=== PATIENT | female | born 1985 | race Caucasian/White ===

== ENCOUNTER 2017-08-03 09:04 | Outpatient (CLI) | payer OTHER ==
[~2017-08-03] VITALS: Ht 162.6 cm; Wt 82.7 kg
[2017-08-03] MEDS ORDERED: AMPICILLIN 2 GM in SODIUM CHLORIDE 0.9% 100 ML IVPB ONE (09:30)
[2017-08-03] MEDS: LACTATED RINGERS 1,000 ML IV SCH ×2 (09:30→11:50)
[2017-08-03] MEDS ORDERED: NEWBORN KIT ONE (09:43)
[2017-08-03 10:22] VITALS: BP 119/78
[2017-08-03 10:29] LABS: BASOPHILS # (AUTO) 0.02 x10^3/uL (0-0.1); BASOPHILS % (AUTO) 0 % (0-1); EOSINOPHILS # (AUTO) 0.03 x10^3/uL (0-0.4); EOSINOPHILS % (AUTO) 0 % (1-7); LYMPHOCYTES # (AUTO) 1.58 x10^3/uL (1-3.4); LYMPHOCYTES % (AUTO) 17 % (22-44); MD NO; MEAN CORPUSCULAR HEMOGLOBIN 28.6 pg (27.0-34.8); MEAN CORPUSCULAR HGB CONC 33.6 g/dL (32.4-35.8); MEAN CORPUSCULAR VOLUME 85.2 fL (80-100); MEAN PLATELET VOLUME 8.4 fL (7.4-10.4); MONOCYTES # (AUTO) 0.57 x10^3/uL (0.2-0.8); MONOCYTES % (AUTO) 6 % (2-9); NEUTROPHILS # (AUTO) 7.17 x10^3/uL (1.8-6.8); NEUTROPHILS % (AUTO) 77 % (42-75); PLATELET COUNT 209 x10^3/uL (130-400); RED BLOOD COUNT 3.89 x10^6/uL (3.82-5.3); RED CELL DISTRIBUTION WIDTH 13.2 % (9.6-15.2)
[2017-08-03] MEDS ORDERED: OXYTOCIN 30U/ 0.9% NaCL 500ML 500 ML IV PRN (11:33)
== END 2017-08-03 13:42 | disposition home or self-care (01) ==
LOC: LDOP 09:04
PROVIDERS: ATTEND Obstetrics & Gynecology
DX: O42.913 Preterm premature rupture of membranes, unspecified as to length of time between rupture and onset of labor, third trimester (principal); Z3A.37 37 weeks gestation of pregnancy
CPT/HCPCS: 36415; 59020; 59025; 76815; 85025; 86850; 86900; 96360; 96366; J0290; J2590; J7120; 99211; G0463

== ENCOUNTER 2017-08-15 23:05 | Inpatient (IN) | payer OTHER ==
[~2017-08-15] VITALS: Ht 162.6 cm; Wt 84.5 kg
[2017-08-15 23:10] VITALS: BP 133/82
[2017-08-15] MEDS ORDERED: NEWBORN KIT ONE (23:40)
[2017-08-15] MEDS: D5%-LACTATED RINGERS 1,000 ML IV SCH (23:40)
[2017-08-15] MEDS ORDERED: OXYTOCIN 30U/ 0.9% NaCL 500ML 500 ML ONE (23:40)
[2017-08-15] MEDS ORDERED: OXYTOCIN 30U/ 0.9% NaCL 500ML 500 ML IV ONE (23:40)
[2017-08-16] MEDS ORDERED: SODIUM CITRATE/CITRIC ACID 30 ML UDC PO PRN
[2017-08-16] MEDS ORDERED: METOCLOPRAMIDE 5 MG/ML, 2ML IVPush PRN
[2017-08-16] MEDS ORDERED: CALCIUM CARBONATE 500 MG TAB.CHEW PO PRN
[2017-08-16] MEDS ORDERED: FENTANYL PF 100 MCG/2ML IVPush PRN
[2017-08-16] MEDS ORDERED: PENICILLIN GK 5,000,000 UNITS in DEXTROSE 5% 100 ML IVPB ONE
[2017-08-16] MEDS ORDERED: TERBUTALINE 1 MG/ML, 1ML IVPush PRN
[2017-08-16] MEDS ORDERED: FENTANYL PF 100 MCG/2ML IV PRN
[2017-08-16] MEDS: LACTATED RINGERS 1,000 ML IV SCH ×4 (00:05→21:29)
[2017-08-16 00:10] LABS: BASOPHILS # (AUTO) 0.02 x10^3/uL (0-0.1); BASOPHILS % (AUTO) 0 % (0-1); EOSINOPHILS # (AUTO) 0.07 x10^3/uL (0-0.4); EOSINOPHILS % (AUTO) 1 % (1-7); LYMPHOCYTES # (AUTO) 2.46 x10^3/uL (1-3.4); LYMPHOCYTES % (AUTO) 21 % (22-44); MD NO; MEAN CORPUSCULAR HGB CONC 33.2 g/dL (32.4-35.8); MEAN CORPUSCULAR VOLUME 84.3 fL (80-100); MEAN PLATELET VOLUME 8.6 fL (7.4-10.4); MONOCYTES # (AUTO) 0.78 x10^3/uL (0.2-0.8); MONOCYTES % (AUTO) 7 % (2-9); NEUTROPHILS # (AUTO) 8.52 x10^3/uL (1.8-6.8); NEUTROPHILS % (AUTO) 72 % (42-75); PLATELET COUNT 274 x10^3/uL (130-400); RED BLOOD COUNT 4.16 x10^6/uL (3.82-5.3); RED CELL DISTRIBUTION WIDTH 13.7 % (9.6-15.2)
[2017-08-16] MEDS: PENICILLIN GK 2,500,000 UNITS in DEXTROSE 5% 100 ML IV SCH ×5 (04:33→22:49)
[2017-08-16 07:30] VITALS: BP 118/73
[2017-08-16] MEDS: D5%-LACTATED RINGERS 1,000 ML IV SCH ×2 (07:38→15:40)
[2017-08-16] MEDS ORDERED: BUPIVACAINE 0.25% ONE (14:42)
[2017-08-16] MEDS ORDERED: FENTANYL PF 100 MCG/2ML ONE (14:42)
[2017-08-16] MEDS ORDERED: FENTANYL/BUPIV./NS/PF 250 ML EPIDCONT ONE (14:43)
[2017-08-16] MEDS ORDERED: LIDOCAINE/PF 1.5%-EPI 1:200K, 30ML ONE (14:45)
[2017-08-16] MEDS ORDERED: FENTANYL/BUPIV./NS/PF 250 ML EPIDCONT SCH (19:33)
[2017-08-16] MEDS ORDERED: LACTATED RINGERS 1,000 ML IV SCH (19:33)
[2017-08-16] MEDS ORDERED: EPHEDRINE 50 MG/ML, 1ML IVPush PRN (20:00)
[2017-08-16] MEDS ORDERED: LACTATED RINGERS 1,000 ML IVBOLUS PRN (20:00)
[2017-08-16] MEDS ORDERED: ONDANSETRON 2MG/ML, 2ML IVPush PRN ×2 (20:00)
[2017-08-16] MEDS ORDERED: ACETAMINOPHEN 325 MG TABLET ONE (21:41)
[2017-08-16] MEDS ORDERED: MISOPROSTOL 200 MCG TABLET ONE (21:42)
[2017-08-16] MEDS ORDERED: LIDOCAINE 1%, 20ML ONE (21:42)
[2017-08-16] MEDS ORDERED: ACETAMINOPHEN 500 MG TABLET PO ONE (22:00)
[2017-08-17] MEDS: OXYTOCIN 30U/ 0.9% NaCL 500ML 500 ML IV SCH ×4 (01:13→11:13)
[2017-08-17] MEDS ORDERED: IBUPROFEN 600 MG TABLET ONE (01:14)
[2017-08-17] MEDS ORDERED: OXYTOCIN 30U/ 0.9% NaCL 500ML 500 ML ONE (01:14)
[2017-08-17] MEDS: IBUPROFEN 600 MG TABLET PO PRN ×4 (01:20→21:12)
[2017-08-17] MEDS: LACTATED RINGERS 1,000 ML IV SCH ×2 (03:33→05:15)
[2017-08-17 04:05] VITALS: BP 103/41
[2017-08-17 05:42] VITALS: BP 113/74
[2017-08-17 08:02] VITALS: BP 115/78
[2017-08-17] MEDS: PRENATAL VIT/IRON/FA 1 EACH TABLET PO SCH (08:50)
[2017-08-17] MEDS ORDERED: PRENATAL VIT/IRON/FA 1 EACH TABLET PO SCH (09:00)
[2017-08-17 09:42] LABS: BASOPHILS # (AUTO) 0.02 x10^3/uL (0-0.1); BASOPHILS % (AUTO) 0 % (0-1); EOSINOPHILS # (AUTO) 0.02 x10^3/uL (0-0.4); EOSINOPHILS % (AUTO) 0 % (1-7); LYMPHOCYTES # (AUTO) 1.26 x10^3/uL (1-3.4); LYMPHOCYTES % (AUTO) 9 % (22-44); MD NO; MEAN CORPUSCULAR HEMOGLOBIN 28.4 pg (27.0-34.8); MEAN CORPUSCULAR HGB CONC 33.7 g/dL (32.4-35.8); MEAN CORPUSCULAR VOLUME 84.4 fL (80-100); MEAN PLATELET VOLUME 8.8 fL (7.4-10.4); MONOCYTES # (AUTO) 0.83 x10^3/uL (0.2-0.8); MONOCYTES % (AUTO) 6 % (2-9); NEUTROPHILS # (AUTO) 12.32 x10^3/uL (1.8-6.8); NEUTROPHILS % (AUTO) 85 % (42-75); PLATELET COUNT 196 x10^3/uL (130-400); RED BLOOD COUNT 2.89 x10^6/uL (3.82-5.3)
[2017-08-17 12:30] VITALS: BP 125/87
[2017-08-17] MEDS ORDERED: MEASLES,MUMPS&RUBELLA VACC/PF 0.5 ML SQ-VACC ONE (19:30)
[2017-08-17] MEDS ORDERED: DIPH,PERTUSS(ACELL),TET VAC/PF NC IM-VACC ONE (19:30)
[2017-08-17 19:35] VITALS: BP 120/77
[2017-08-17 23:57] VITALS: BP 102/65
[2017-08-18] MEDS: IBUPROFEN 600 MG TABLET PO PRN ×3 (02:56→17:04)
[2017-08-18] MEDS ORDERED: MEASLES,MUMPS&RUBELLA VACC/PF 0.5 ML SQ-VACC ONE (07:00)
[2017-08-18 09:15] VITALS: BP 103/67
[2017-08-18] MEDS: FERROUS SULFATE 325 MG TABLET PO SCH ×2 (09:15→17:04)
[2017-08-18] MEDS: PRENATAL VIT/IRON/FA 1 EACH TABLET PO SCH (09:15)
[2017-08-18 20:20] VITALS: BP 105/56
[2017-08-19] MEDS: IBUPROFEN 600 MG TABLET PO PRN ×2 (01:27→09:16)
[2017-08-19] MEDS ORDERED: IBUP-1222 PO (05:56)
[2017-08-19] MEDS ORDERED: FERR325T5 PO (05:59)
[2017-08-19] MEDS ORDERED: DOCUSATE 100 MG CAPSULE PO PRN (06:30)
[2017-08-19] MEDS: FERROUS SULFATE 325 MG TABLET PO SCH (09:16)
[2017-08-19] MEDS: PRENATAL VIT/IRON/FA 1 EACH TABLET PO SCH (09:16)
== END 2017-08-19 11:10 | disposition home or self-care (01) | DRG 775 ==
LOC: LDOP 23:05 → LDIP 23:43 → 2NW 08-17 03:15
PROVIDERS: ADMIT Obstetrics & Gynecology; ATTEND Obstetrics & Gynecology
PROC: 10E0XZZ Delivery of Products of Conception, External Approach (ICD-10-PCS; principal; 2017-08-17)
PROC: 0KQM0ZZ Repair Perineum Muscle, Open Approach (ICD-10-PCS; 2017-08-17)
PROC: 10E0XZZ Delivery of Products of Conception, External Approach (ICD-10-PCS; 2017-08-17)
PROC: 3E0R3BZ Introduction of Anesthetic Agent into Spinal Canal, Percutaneous Approach (ICD-10-PCS; 2017-08-17)
PROC: 00HU33Z Insertion of Infusion Device into Spinal Canal, Percutaneous Approach (ICD-10-PCS; 2017-08-17)
DX: O99.824 Streptococcus B carrier state complicating childbirth (principal); O42.92 Full-term premature rupture of membranes, unspecified as to length of time between rupture and onset of labor; O70.1 Second degree perineal laceration during delivery; Z37.0 Single live birth; Z3A.38 38 weeks gestation of pregnancy
CPT/HCPCS: 36415; 85025; 86850; 86900; 89060; 90715; J2540; J3010; J3490; J2590; J7120; Q0114

== ENCOUNTER 2019-11-21 05:58 | Inpatient (IN) | payer OTHER ==
[~2019-11-21] VITALS: Ht 162.6 cm; Wt 81.8 kg
[~2019-11-21 05:58] MED LIST: FERR325T5 PO; IBUP-1222 PO
[2019-11-21 06:05] VITALS: BP 112/77
[2019-11-21] MEDS ORDERED: OXYTOCIN 30U/ 0.9% NaCL 500ML 500 ML IV ONE (06:05)
[2019-11-21] MEDS ORDERED: AMPICILLIN 2 GM in SODIUM CHLORIDE 0.9% 100 ML IVPB STA (06:05)
[2019-11-21] MEDS ORDERED: OXYTOCIN 30U/ 0.9% NaCL 500ML 500 ML IV PRN (06:05)
[2019-11-21] MEDS ORDERED: NEWBORN KIT ONE ×2 (06:06→06:25)
[2019-11-21] MEDS ORDERED: MISOPROSTOL 200 MCG TABLET ONE (06:07)
[2019-11-21] MEDS ORDERED: OXYTOCIN 30U/ 0.9% NaCL 500ML 500 ML ONE ×2 (06:07→19:44)
[2019-11-21] MEDS ORDERED: LIDOCAINE 1%, 20ML ONE (06:07)
[2019-11-21] MEDS: LACTATED RINGERS 1,000 ML IV SCH ×2 (06:15→14:45)
[2019-11-21] MEDS ORDERED: FENTANYL/BUPIV./NS/PF 250 ML EPIDCONT SCH (06:26)
[2019-11-21] MEDS ORDERED: TERBUTALINE 1 MG/ML, 1ML IVPush PRN (06:30)
[2019-11-21] MEDS ORDERED: ONDANSETRON 2MG/ML, 2ML IVPush PRN (06:30)
[2019-11-21] MEDS: AMPICILLIN 1 GM in SODIUM CHLORIDE 0.9% 50 ML IVPB SCH ×3 (06:30→14:30)
[2019-11-21] MEDS ORDERED: TERBUTALINE 1 MG/ML, 1ML SQ PRN (06:30)
[2019-11-21] MEDS ORDERED: FENTANYL PF 100 MCG/2ML IV PRN (06:30)
[2019-11-21] MEDS ORDERED: ALUMINUM/MAG/SIMETHICONE 30 ML UDC PO PRN (06:30)
[2019-11-21] MEDS ORDERED: SODIUM CITRATE/CITRIC ACID 30 ML UDC PO PRN (06:30)
[2019-11-21] MEDS ORDERED: LACTATED RINGERS 1,000 ML IVBOLUS PRN ×2 (06:30→15:00)
[2019-11-21] MEDS ORDERED: PLEASE ENTER HEIGHT AND WEIGHT MC SCH (06:30)
[2019-11-21] MEDS ORDERED: SODIUM CHLORIDE FLUSH 10ML SYR IVF PRN (06:30)
[2019-11-21] MEDS ORDERED: FENTANYL PF 100 MCG/2ML IVPush PRN (06:30)
[2019-11-21 06:52] LABS: BASOPHILS # (AUTO) 0.02 x10^3/uL (0-0.1); BASOPHILS % (AUTO) 0 % (0-1); EOSINOPHILS # (AUTO) 0.11 x10^3/uL (0-0.4); EOSINOPHILS % (AUTO) 1 % (1-7); LYMPHOCYTES # (AUTO) 1.76 x10^3/uL (1-3.4); LYMPHOCYTES % (AUTO) 19 % (22-44); MD NO; MEAN CORPUSCULAR HEMOGLOBIN 30.1 pg (27.0-34.8); MEAN CORPUSCULAR HGB CONC 34.1 g/dL (32.4-35.8); MEAN CORPUSCULAR VOLUME 88.3 fL (80-100); MEAN PLATELET VOLUME 7.9 fL (7.4-10.4); MONOCYTES % (AUTO) 7 % (2-9); NEUTROPHILS # (AUTO) 6.91 x10^3/uL (1.8-6.8); NEUTROPHILS % (AUTO) 73 % (42-75); PLATELET COUNT 233 x10^3/uL (130-400); RED BLOOD COUNT 4.13 x10^6/uL (3.82-5.3); RED CELL DISTRIBUTION WIDTH 14.4 % (9.6-15.2)
[2019-11-21] MEDS ORDERED: FENTANYL PF 500 MCG, BUPIVACAINE/PF 0.5%, 30ML 62.5 ML in SODIUM CHLORIDE 0.9% 177.5 ML EPIDCONT SCH (07:00)
[2019-11-21] MEDS: D5%-LACTATED RINGERS 1,000 ML IV SCH ×3 (14:05→22:05)
[2019-11-21] MEDS ORDERED: BUPIVACAINE 0.25% ONE (14:34)
[2019-11-21] MEDS ORDERED: LACTATED RINGERS 1,000 ML IV SCH (14:59)
[2019-11-21] MEDS ORDERED: EPHEDRINE 50 MG/ML, 1ML IVPush PRN (15:00)
[2019-11-21] MEDS ORDERED: FENTANYL PF 500 MCG, BUPIVACAINE/PF 0.5%, 30ML 62.5 ML in SODIUM CHLORIDE 0.9% 177.5 ML IV SCH (15:30)
[2019-11-21] MEDS ORDERED: PREN1TAB60 PO (16:26)
[2019-11-21] MEDS ORDERED: AMPICILLIN 1 GM in SODIUM CHLORIDE 0.9% 100 ML IVPB SCH (18:00)
[2019-11-21] MEDS ORDERED: OXYTOCIN 30U/ 0.9% NaCL 500ML 500 ML IV SCH (18:54)
[2019-11-21] MEDS ORDERED: ACETAMINOPHEN 325 MG TABLET PO PRN ×2 (19:00)
[2019-11-21] MEDS ORDERED: ONDANSETRON 2MG/ML, 2ML IV PRN (19:00)
[2019-11-21] MEDS ORDERED: SIMETHICONE 80 MG CHEW TAB PO PRN (19:00)
[2019-11-21] MEDS ORDERED: CALCIUM CARBONATE 500 MG TAB.CHEW PO PRN (19:00)
[2019-11-21] MEDS ORDERED: MISOPROSTOL 200 MCG TABLET PR PRN (19:00)
[2019-11-21] MEDS ORDERED: HYDROcodone/APAP 5/325 TABLET PO PRN (19:00)
[2019-11-21] MEDS ORDERED: IBUPROFEN 600 MG TABLET ONE (19:43)
[2019-11-21] MEDS ORDERED: OXYcodone/APAP 5/325MG TABLET ONE (19:44)
[2019-11-21] MEDS: OXYTOCIN 30U/ 0.9% NaCL 500ML 500 ML IV SCH (19:45)
[2019-11-21] MEDS: IBUPROFEN 600 MG TABLET PO PRN (19:45)
[2019-11-21] MEDS ORDERED: OXYcodone/APAP 5/325MG TABLET PO ONE (20:00)
[2019-11-21 21:30] VITALS: BP 102/66
[2019-11-21] MEDS: HYDROcodone/APAP 5/325 TABLET PO PRN (23:53)
[2019-11-22 02:00] VITALS: BP 109/66
[2019-11-22] MEDS: IBUPROFEN 600 MG TABLET PO PRN ×4 (02:19→23:49)
[2019-11-22 02:56] LABS: BASOPHILS # (AUTO) 0.02 x10^3/uL (0-0.1); BASOPHILS % (AUTO) 0 % (0-1); EOSINOPHILS # (AUTO) 0.04 x10^3/uL (0-0.4); EOSINOPHILS % (AUTO) 0 % (1-7); LYMPHOCYTES # (AUTO) 1.41 x10^3/uL (1-3.4); LYMPHOCYTES % (AUTO) 13 % (22-44); MD NO; MEAN CORPUSCULAR HEMOGLOBIN 29.8 pg (27.0-34.8); MEAN CORPUSCULAR VOLUME 87.8 fL (80-100); MEAN PLATELET VOLUME 8.4 fL (7.4-10.4); MONOCYTES # (AUTO) 0.86 x10^3/uL (0.2-0.8); MONOCYTES % (AUTO) 8 % (2-9); NEUTROPHILS # (AUTO) 8.86 x10^3/uL (1.8-6.8); NEUTROPHILS % (AUTO) 79 % (42-75); PLATELET COUNT 194 x10^3/uL (130-400); RED BLOOD COUNT 3.61 x10^6/uL (3.82-5.3); RED CELL DISTRIBUTION WIDTH 14.6 % (9.6-15.2)
[2019-11-22] MEDS: HYDROcodone/APAP 5/325 TABLET PO PRN ×4 (04:41→23:52)
[2019-11-22] MEDS: OXYTOCIN 30U/ 0.9% NaCL 500ML 500 ML IV SCH ×2 (04:54→14:54)
[2019-11-22 08:00] VITALS: BP 105/67
[2019-11-22] MEDS: DOCUSATE 100 MG CAPSULE PO PRN ×2 (08:44→20:09)
[2019-11-22] MEDS: PRENATAL VIT/IRON/FA 1 EACH TABLET PO SCH (09:00)
[2019-11-22] MEDS ORDERED: HYDR-3240 PO (09:41)
[2019-11-22] MEDS ORDERED: IBUP-1222 PO (09:42)
[2019-11-22] MEDS ORDERED: DOCU-131 PO (09:42)
[2019-11-22 15:15] VITALS: BP 121/78
[2019-11-22 20:00] VITALS: BP 106/66
[2019-11-23] MEDS: OXYTOCIN 30U/ 0.9% NaCL 500ML 500 ML IV SCH (00:54)
[2019-11-23 07:15] VITALS: BP 111/73
[2019-11-23] MEDS: DOCUSATE 100 MG CAPSULE PO PRN (09:02)
[2019-11-23] MEDS: IBUPROFEN 600 MG TABLET PO PRN (09:02)
[2019-11-23] MEDS: PRENATAL VIT/IRON/FA 1 EACH TABLET PO SCH (09:02)
[2019-11-23] MEDS: HYDROcodone/APAP 5/325 TABLET PO PRN (09:03)
== END 2019-11-23 09:10 | disposition home or self-care (01) | DRG 807 ==
LOC: LDIP 05:58 → 2NW 21:00
PROVIDERS: ADMIT Obstetrics & Gynecology; ATTEND Obstetrics & Gynecology
PROC: 0KQM0ZZ Repair Perineum Muscle, Open Approach (ICD-10-PCS; principal; 2019-11-21)
PROC: 10E0XZZ Delivery of Products of Conception, External Approach (ICD-10-PCS; 2019-11-21)
PROC: 10907ZC Drainage of Amniotic Fluid, Therapeutic from Products of Conception, Via Natural or Artificial Opening (ICD-10-PCS; 2019-11-21)
PROC: 10H07YZ Insertion of Other Device into Products of Conception, Via Natural or Artificial Opening (ICD-10-PCS; 2019-11-21)
PROC: 3E033VJ Introduction of Other Hormone into Peripheral Vein, Percutaneous Approach (ICD-10-PCS; 2019-11-21)
PROC: 3E0R3BZ Introduction of Anesthetic Agent into Spinal Canal, Percutaneous Approach (ICD-10-PCS; 2019-11-21)
PROC: 00HU33Z Insertion of Infusion Device into Spinal Canal, Percutaneous Approach (ICD-10-PCS; 2019-11-21)
DX: O48.0 Post-term pregnancy (principal); Z37.0 Single live birth; O70.1 Second degree perineal laceration during delivery; Z3A.40 40 weeks gestation of pregnancy
CPT/HCPCS: 36415; J7121; 85025; 86592; 86850; 86900; G0378; J0290; J2590; J3010; J7120

== ENCOUNTER → 2021-04-04 | Outpatient (CLI) | payer OTHER ==
[~2021-04-04] MED LIST changes: +DOCU-131 PO; +HYDR-2214 PO; +PREN1TAB60 PO
== END | disposition home or self-care (01) ==
LOC: RAD 14:10
PROVIDERS: ATTEND Nurse Practitioner Primary Care
DX: R06.02 Shortness of breath (principal); I49.8 Other specified cardiac arrhythmias; Z87.09 Personal history of other diseases of the respiratory system
CPT/HCPCS: 71046